=== PATIENT | male | born 1990 | race Hispanic/Latino ===

== ENCOUNTER 2017-01-29 12:54 | Emergency (ER) | payer OTHER ==
[2017-01-29 13:01] VITALS: RESP 16
[2017-01-29 13:35] VITALS: TEMP 99.3
--- NOTE | 2017-01-29 14:08 | PDOC ---
Gen Adult / Medical Screen HPI - General Chief Complaint: Clear for Confinement/DUI Draw Stated Complaint: CLEAR FOR CONFINEMENT Date Seen by Provider: 01/29/17 Time Seen by Provider: 14:03 - History of Present Illness Initial Comments: Patient's rash 27-year-old gentleman who was incarcerated today and tells me that he is charged with possession of illegal substance and interfering with Justice as it is believed that he swallowed a large amount of marijuana prior to being able to be arrested with it. He denies this and states that he does swallowed a big piece of jerky not marijuana. He does not present with any sort of weren't or order for drug testing he does not want to have any testing. He states he feels fine. He tells me he has no chronic medical issues. He tells me he takes no chronic prescription medications. His vital signs are benign. He is alert and oriented is able to speak and answer questions appropriately he has no obvious focal deficits. - Patient Home Medications Home Medications: Home Medications Hydrocodone/Acetaminophen [[place] 5-325 Tablet] 1 - 2 each PO Q6H PRN #15 tablet 05/18/15 - Patient Allergies Allergies/Adverse Reactions: Allergies Allergy/AdvReac Type Severity Reaction Status Date / Time No Known Allergies Allergy Verified 01/29/17 13:05 Past Medical History - mk LEE History: Denies History Cardiovascular History: Denies History Respiratory History: Denies History Gastrointestinal History: Denies History Genitourinary History: Denies History Endocrine History: Denies History Musculoskeletal History: Other (please comment) Prosthesis or Implant: No Additional Musculoskeletal History: DISLOCATED L SHOULDER X 3 prior Neurological History: Denies History Blood Disorders: Denies History Psychiatric History: Denies History History of Sexually Transmitted Diseases: No Cancer History: Denies History In Past Year Been Physically Harmed or Verbally Threatened: No History of MDRO: No History of Other Communicable Diseases: No Tobacco Use: Former Smoker Alcohol Use: None Substance Use Type: None Previous Surgical History: No Type / Date of Surgery: DISLOCATION OF LEFT SHOULDER 3 TIMES Anesthesia Reactions: No Malignant Hyperthermia: No Significant Family History: No pertinent family hx Past Medical History Reviewed: Reviewed - No Changes ROS - Limitations ROS Limitations: No Limitations Constitution: REPORTS: Denies Symptoms Cardiovascular: REPORTS: Denies Cardiac Symptoms Respiratory: REPORTS: Denies Resp Symptoms Neurological: REPORTS: Denies Neuro Symptoms Gen Adult/Medical Screen Exam - General Appearance General Appearance: POSITIVE: Alert, Cooperative, No Acute Distress - HEENT HEENT: POSITIVE: Head Inspection Nml, Eyes Inspection Nml - Neck Neck: POSITIVE: Normal Inspection, Thyroid Normal - Respiratory Respiratory: POSITIVE: No Respiratory Distress - Cardiovascular Cardiovascular: POSITIVE: Regular Rate & Rhythm - Abdomen Abdomen: Soft: (All Quadrants), Normal Bowel Sounds: (All Quadrants), Denies Tenderness: (All Quadrants) - Back Back: POSITIVE: Normal Inspection - Neurological / Psychological Mental Status: POSITIVE: Depressed Mood Orientation: POSITIVE: Oriented x 3 - Skin Skin: POSITIVE: Normal Color, Warm, Dry Gen Adlt/Medical Scrn Progress - Patient's Progress MDM / ED Course: I believe this gentleman likely did swallow marijuana as the way he answered questions he slipped a couple of times and pretty much stated that he did and that he knows that the amount that he swallowed wouldn't be dangerous. Then he corrected himself to say well if I did. At any rate I have no compulsion to test him for anything and he does not want to be tested and there is no other clear barrier to being incarcerated as physically seems to be doing fine. We' ll go ahead and let him go to senior care he denies risk for withdrawal from any other substances however if with withdrawal begins to recur we can bring him back for further evaluation. Patient Care Time - Estimated PCT Patient Care Time (In Minutes): 20 Vital Signs - Recent Vital Signs Vital Signs: Vital Signs (Last 8 hours) Temp Pulse Resp BP Pulse Ox 01/29/17 13:09 99.3 F 128 H 16 161/95 97 01/29/17 12:58 99.2 F 128 H 16 161/95 97 - VS Reviewed Vital Signs Reviewed: Yes (with my exam heart rate is below 100) Discharge Clinical Impression: Medical clearance for incarceration Condition: Good Patient Instructions Given at Discharge: Cannabis Abuse (ED) Additional Instructions: Please return with any substantial symptoms at all. Follow Up With: NONE,NONE [Primary Care Provider] -
== END 2017-01-29 14:14 ==
LOC: ER 12:54
DX: Z04.8 Encounter for examination and observation for other specified reasons (principal)
CPT/HCPCS: 99282

== ENCOUNTER → 2017-02-27 | Outpatient (CLI) | payer OTHER | LOC: LAB 10:00 | PROVIDERS: ATTEND Family Medicine | DX: Z30.8 Encounter for other contraceptive management (principal) | CPT/HCPCS: 89321 ==